=== PATIENT | female | born 1985 | race Two or more races ===

== ENCOUNTER 2019-10-05 21:01 | Emergency (ER) | payer MEDICAID ==
[~2019-10-05] VITALS: Ht 165.1 cm; Wt 143.3 kg
[~2019-10-05 21:01] MED LIST: FENOFIBRATE43 MG ORAL; KEPPRA500 M4 ORAL; TOPIRAMATE25 MG ORAL; VISTARIL10 MG ORAL
--- NOTE | 2019-10-05 21:25 | NUR ---
ED Nurse Note: [place] by [facility] c/c seizure, pt reports she had three seizure today, last one occured about 2 hrs ago and reports she had urinary incontinence, approached the medic at the shopping center. pt reports body ache. pt states she takes topamax and keppra for seizure but reports she hasn't taken them today. she pt AA&ox4, gcs=15, skin warm and dry, noted wet pants, resp even and unlabored on RA, -n/v/d, ambulates w/ steady slow gait, will cont monitor. sz precaution and aspiration precaution started. safey measures in place. pt advised to notify staff if need assist.
--- NOTE | 2019-10-05 21:35 | NUR ---
ED Nurse Note: seizure precautions in place. pt is awake and alert, does not apear to be in any distress at this time. will continue to monitor pt
[2019-10-05] MEDS ORDERED: KEPPRA1000 MG ORAL (21:39)
--- NOTE | 2019-10-05 21:39 | Emergency Room Report ---
History of Present Illness General Chief Complaint: Seizure Source: Patient Present Illness HPI Is a 34-year-old female with a history of seizure. She presents with chief complaint of seizure. She had a witnessed tonic-clonic seizure activity lasting for less than a minute. Mild postictal state. Back to baseline now. No oral trauma. Did have incontinence of her urine. She has not been taking her Keppra. She said it fell out and she has not been taking it. No nausea no vomiting. No other injury. Similar symptom in the past. Allergies: Coded Allergies: PENICILLINS (Verified Allergy, Unknown, 10/05/19) Uncoded Allergies: EPAMIN (Allergy, Unknown, 10/05/19) Patient History Past Medical History: see triage record, old chart reviewed, seizures, psych hx Past Surgical History: none Pertinent Family History: none Social History: Denies: smoking Now: No Immunizations: other Reviewed Nursing Documentation: PMH: Agreed; PSxH: Agreed Nursing Documentation-PMH Past Medical History: No History, Except For Hx Seizures: Yes Review of Systems Eye: Denies: eye pain, blurred vision ENT: Denies: ear pain, nose congestion, throat swelling Respiratory: Denies: cough, shortness of breath Cardiovascular: Denies: chest pain, palpitations Gastrointestinal: Denies: abdominal pain, diarrhea, nausea, vomiting Musculoskeletal: Denies: back pain, joint pain Skin: Denies: rash Neurological: Denies: headache, numbness Endocrine: Denies: increased thirst, increased urine Hematologic/Lymphatic: Denies: easy bruising All Other Systems: negative except mentioned in HPI Physical Exam Vital Signs Date Time Temp Pulse Resp B/P (MAP) Pulse Ox O2 Delivery O2 Flow Rate FiO2 10/05/19 20:55 99.7 116 18 122/82 (95) 100 Room Air Vitals unremarkable Sp02 EP Interpretation: reviewed, normal General Appearance: well appearing, no apparent distress, alert, obese Head: normocephalic, atraumatic Eyes: bilateral eye PERRL, bilateral eye EOMI ENT: hearing grossly normal, normal pharynx Neck: full range of motion, supple, no meningismus Respiratory: chest non-tender, lungs clear, normal breath sounds Cardiovascular #1: regular rate, rhythm, no murmur Gastrointestinal: normal bowel sounds, non tender, no mass, no organomegaly, no bruit, non-distended Musculoskeletal: back normal, normal range of motion, gait/station normal Psychiatric: mood/affect normal Medical Decision Making Diagnostic Impression: Primary Impression: Epileptic seizure, generalized ER Course Patient presents with a seizure because she is not taking her Keppra. Keppra loaded here. Will discharge home. I see no need for blood work or diagnostic study. Last Vital Signs Date Time Temp Pulse Resp B/P (MAP) Pulse Ox O2 Delivery O2 Flow Rate FiO2 10/05/19 21:27 116 18 Room Air 10/05/19 20:55 99.7 122/82 (95) 100 Status: improved Disposition: HOME, SELF-CARE Condition: Stable Scripts Levetiracetam (KEPPRA) 1,000 Mg Tablet 1000 MG ORAL BID, #60 TAB 0 Refills Prov: Abbe Snyder MD 10/05/19 Patient Instructions: Seizure, Adult Additional Instructions: Take your seizure medication. Follow-up with your doctor in 7 days. Return if symptoms worsen. Abbe Snyder MD Oct 05, 2019 21:39
[2019-10-05] MEDS ORDERED: levETIRAcetam 1,000mg/NS100ml 100 ML IVPB ONE (21:45)
[2019-10-05 21:46] VITALS: BP 122/82
[2019-10-05 22:10] VITALS: BP 124/88
--- NOTE | 2019-10-05 22:10 | NUR ---
ER DISCHARGE NOTE: Patient is cleared to be discharged per ERMD, pt is aox4, on room air, with stable vital signs. pt was given dc and prescription instructions, pt was able to verbalize understanding, pt id band and iv site removed without complications. pt is able to ambulate with steady gait. pt took all belongings.
== END 2019-10-05 22:10 | disposition home or self-care (01) ==
LOC: EDBD 21:01 → EDSEX 21:01 → EMR 21:18
DX: G40.909 Epilepsy, unspecified, not intractable, without status epilepticus (principal); E66.9 Obesity, unspecified; Z88.0 Allergy status to penicillin
CPT/HCPCS: 96374; J1953; Z7502; 99284